=== PATIENT | female | born 1980 | race Caucasian/White ===

== ENCOUNTER 2021-12-03 12:39 | Inpatient (IN) | payer OTHER ==
[~2021-12-03] VITALS: Ht 167.6 cm; Wt 51.0 kg
[2021-12-03 12:50] VITALS: BP 138/72
[2021-12-03 13:44] LABS: HEMATOCRIT 36.7 % (37.0-47.0); MEAN CELL VOLUME 85.3 fl (81.0-99.0); MEAN CORPUSCULAR HGB 28.1 pg (27.0-31.0); MEAN PLATELET VOLUME 10.9 fl (9.6-12.3); PLATELET COUNT AUTOMATED 197 10*3/uL (130-400); RED CELL DISTRI WIDTH 13.7 % (0-14.5); WHITE BLOOD COUNT 21.9 10*3/uL (4.8-10.8)
[2021-12-03 13:46] LABS: MANUAL DIFF REFLEX YES
[2021-12-03 14:00] LABS: ALKALINE PHOSPHATASE 96 U/L (45-117); BUN 23 mg/dl (7-24); CHLORIDE 104 mmol/L (98-107); CREATININE 1.08 mg/dL (0.55-1.02); POTASSIUM 4.1 mmol/L (3.5-5.1); SGOT/AST 23 IU/L (3-35); SGPT/ALT 22 U/L (12-78); SODIUM 133 mmol/L (136-145); TOTAL PROTEIN 9.1 gm/dL (6.4-8.2)
[2021-12-03 14:08] LABS: BETA-HCG, QUANT < 1.0 mIU/mL (1-3); ETHYL ALCOHOL < 3.0 mg/dl (<3)
[2021-12-03 14:10] LABS: PLATELET SUFFICIENCY NORMAL (NORMAL); POLYCHROMASIA SLIGHT; TOTAL CELLS COUNTED 100 #CELLS
[2021-12-03 14:12] LABS: BILIRUBIN Negative (Negative); BLOOD 1+ (Negative); CLARITY Clear (Clear); COLOR Yellow (Yellow); GLUCOSE Negative (Negative); KETONE Negative (Negative); LEUKO ESTERASE 3+ (Negative); NITRITE Negative (Negative); PH 7.5 (4.5-8.0)
[2021-12-03 14:22] LABS: URINE AMPHETAMINES > 1000 (1000ng/ml); URINE BARBITURATES < 200 (200ng/ml); URINE BENZODIAZEPINES < 200 (200ng/ml); URINE CANNABINOIDS (THC) < 50 (50ng/ml); URINE COCAINE > 300 (300ng/ml); URINE METHADONE < 300 (300ng/ml); URINE OPIATES < 300 (300ng/ml)
[2021-12-03 14:25] LABS: EPITHELIAL CELLS 16-20; WBC TNTC wbc/hpf (0-5)
[2021-12-03 14:26] LABS: BACTERIA 1+
[2021-12-03 14:29] LABS: URINE PHENCYCLIDINE < 25 (25ng/ml)
[2021-12-03 16:00] VITALS: BP 135/67
[2021-12-04] VITALS: BP 103/55
[2021-12-04 05:55] LABS: BUN 24 mg/dl (7-24); CHLORIDE 108 mmol/L (98-107); CREATININE 0.86 mg/dL (0.55-1.02); POTASSIUM 3.8 mmol/L (3.5-5.1); SODIUM 136 mmol/L (136-145)
[2021-12-04 05:59] LABS: BASO % 0.1 % (0.0-1.0); EOS % 0.1 % (1.0-4.0); HEMATOCRIT 35.8 % (37.0-47.0); LYMPH # 1.3 10*3/uL (1.3-4.4); LYMPH % 10.6 % (27.0-41.0); MEAN CELL VOLUME 84.2 fl (81.0-99.0); MEAN CORPUSCULAR HGB 28.2 pg (27.0-31.0); MEAN CORPUSCULAR HGB CONC 33.5 g/dl (33.0-37.0); MEAN PLATELET VOLUME 11.1 fl (9.6-12.3); MONO # 0.4 10*3/uL (0.1-1.0); MONO % 3.5 % (3.0-9.0); NEUT # 10.3 10*3/uL (2.3-7.9); NEUT % 85.4 % (47.0-73.0); PLATELET COUNT AUTOMATED 207 10*3/uL (130-400); RED BLOOD COUNT 4.25 10*6/uL (4.10-5.10); RED CELL DISTRI WIDTH 13.6 % (0-14.5)
[2021-12-04 08:00] VITALS: BP 119/68
[2021-12-04 12:00] VITALS: BP 143/66
[2021-12-04 20:00] VITALS: BP 157/82
[2021-12-05] VITALS: BP 150/67
[2021-12-05 06:08] LABS: BASO % 0.2 % (0.0-1.0); BUN 23 mg/dl (7-24); CHLORIDE 107 mmol/L (98-107); CREATININE 0.94 mg/dL (0.55-1.02); HEMATOCRIT 36.2 % (37.0-47.0); LYMPH # 1.2 10*3/uL (1.3-4.4); MEAN CELL VOLUME 83.6 fl (81.0-99.0); MEAN CORPUSCULAR HGB 28.2 pg (27.0-31.0); MEAN CORPUSCULAR HGB CONC 33.7 g/dl (33.0-37.0); MEAN PLATELET VOLUME 10.9 fl (9.6-12.3); MONO # 0.4 10*3/uL (0.1-1.0); MONO % 3.3 % (3.0-9.0); NEUT # 9.3 10*3/uL (2.3-7.9); NEUT % 85.2 % (47.0-73.0); PLATELET COUNT AUTOMATED 243 10*3/uL (130-400); POTASSIUM 3.5 mmol/L (3.5-5.1); RED BLOOD COUNT 4.33 10*6/uL (4.10-5.10); RED CELL DISTRI WIDTH 13.4 % (0-14.5); SODIUM 136 mmol/L (136-145); WHITE BLOOD COUNT 10.9 10*3/uL (4.8-10.8)
[2021-12-05 08:00] VITALS: BP 156/78
[2021-12-05 16:00] VITALS: BP 144/75
[2021-12-05 20:00] VITALS: BP 146/76
[2021-12-06] VITALS: BP 148/71
[2021-12-06 06:19] LABS: BASO % 0.1 % (0.0-1.0); EOS % 0.1 % (1.0-4.0); HEMATOCRIT 38.2 % (37.0-47.0); LYMPH # 1.3 10*3/uL (1.3-4.4); LYMPH % 16.6 % (27.0-41.0); MEAN CELL VOLUME 84.1 fl (81.0-99.0); MEAN CORPUSCULAR HGB 28.2 pg (27.0-31.0); MEAN CORPUSCULAR HGB CONC 33.5 g/dl (33.0-37.0); MONO # 0.3 10*3/uL (0.1-1.0); NEUT # 6.3 10*3/uL (2.3-7.9); NEUT % 78.8 % (47.0-73.0); PLATELET COUNT AUTOMATED 271 10*3/uL (130-400); RED BLOOD COUNT 4.54 10*6/uL (4.10-5.10); RED CELL DISTRI WIDTH 13.5 % (0-14.5)
[2021-12-06 06:25] LABS: BUN 17 mg/dl (7-24); CHLORIDE 106 mmol/L (98-107); CREATININE 0.93 mg/dL (0.55-1.02); POTASSIUM 3.6 mmol/L (3.5-5.1); SODIUM 136 mmol/L (136-145)
[2021-12-06 08:00] VITALS: BP 147/73
[2021-12-06 16:00] VITALS: BP 135/75
[2021-12-06 20:00] VITALS: BP 138/76
[2021-12-07] VITALS: BP 109/54
[2021-12-07 08:00] VITALS: BP 105/59
[2021-12-07] MEDS ORDERED: THERA TABLET400 MCG PO (08:56)
[2021-12-07] MEDS ORDERED: NATURE'S BLEND F1 MG PO (08:56)
[2021-12-07] MEDS ORDERED: METHOCARBAMOL750 M1 PO (08:56)
[2021-12-07] MEDS ORDERED: VITAMIN B-1100 M1 PO (08:56)
[2021-12-07] MEDS ORDERED: ROPINIROLE HYD0.5 MG PO (08:56)
[2021-12-07] MEDS ORDERED: DOXYCYCLINE MO100 MG PO (08:56)
[2021-12-07] MEDS ORDERED: TRAZODONE50 MG PO (08:56)
[2021-12-07] MEDS ORDERED: SENNA8.6 MG PO (08:56)
[2021-12-07] MEDS ORDERED: ONDANSETRON HYDR4 M1 PO (08:56)
[2021-12-07] MEDS ORDERED: ATARAX,VISTARIL50 MG PO (08:56)
== END 2021-12-07 10:50 | disposition home or self-care (01) | DRG 720 ==
LOC: 4E 12:39
PROVIDERS: Internal Medicine; Registered Nurse; ADMIT Internal Medicine; ATTEND Internal Medicine
DX: A41.9 Sepsis, unspecified organism (principal); L03.116 Cellulitis of left lower limb; N17.0 Acute kidney failure with tubular necrosis; F11.23 Opioid dependence with withdrawal; F15.10 Other stimulant abuse, uncomplicated; R63.4 Abnormal weight loss; F17.210 Nicotine dependence, cigarettes, uncomplicated; F43.10 Post-traumatic stress disorder, unspecified; F14.90 Cocaine use, unspecified, uncomplicated; F12.90 Cannabis use, unspecified, uncomplicated; R65.20 Severe sepsis without septic shock; E87.8 Other disorders of electrolyte and fluid balance, not elsewhere classified; Z83.3 Family history of diabetes mellitus; Z82.49 Family history of ischemic heart disease and other diseases of the circulatory system; Z88.6 Allergy status to analgesic agent; Z91.040 Latex allergy status; Z68.1 Body mass index [BMI] 19.9 or less, adult